=== PATIENT | male | born 1970 | race African-American/Black ===

== ENCOUNTER 2021-07-01 21:40 | Emergency (ER) | payer BC, OTHER ==
[2021-07-01 21:44] VITALS: BP 120/80; PULSE 89; TEMP 100; BMI 37.7
[2021-07-01] MEDS ORDERED: ACETAMINOPHEN 325 MG TABLET (FP) PO ONE (22:16)
== END 2021-07-01 22:38 | disposition home or self-care (01) ==
LOC: JER 21:40
DX: R50.9 Fever, unspecified (principal); Z11.52 Encounter for screening for COVID-19
CPT/HCPCS: 99283-25; C9803; U0003; U0005

== ENCOUNTER 2023-10-01 21:20 | Emergency (ER) | payer BC ==
[2023-10-01 21:25] VITALS: BMI 36.3
[2023-10-01] MEDS ORDERED: ACETAMINOPHEN INJECTION 100 ML IVPB ONE (22:22)
[2023-10-01] MEDS ORDERED: ONDANSETRON 4 MG/2 ML VIAL ONE (22:22)
[2023-10-01] MEDS: ACETAMINOPHEN 1000 MG/100 ML BAG IVPB ONE (22:47)
[2023-10-01] MEDS: SODIUM CHLORIDE 0.9% 500 ML INFUS.BAG IV ONE (22:47)
[2023-10-01] MEDS: ONDANSETRON 4 MG/2 ML VIAL IVPUSH ONE (22:48)
[2023-10-01 22:51] LABS: HEMATOCRIT 43.3 % (35.4-49); HEMOGLOBIN 15.1 GM/dL (11.7-16.9); MCHC 34.8 g/dl (32.0-35.9); MEAN PLT VOLUME 7.3 fl (7.5-11.1); PLATELET COUNT 273 10^3/uL (134-434); RBC 5.04 M/mm3 (4.00-5.60); WHITE BLOOD COUNT 9.2 K/mm3 (4.0-10.0)
[2023-10-01 22:56] LABS: INR 1.05 (0.83-1.09); PROTHROMBIN TIME (PATIENT) 12.2 SEC (9.7-13.0)
[2023-10-01 22:59] LABS: ACTIVATED PTT 30.5 SECONDS (25.2-36.5)
[2023-10-01 23:02] LABS: CHLORIDE 106 mmol/L (98-107); POTASSIUM 3.2 mmol/L (3.5-5.1); SODIUM 138 mmol/L (136-145)
[2023-10-01 23:04] LABS: CALCIUM 8.8 mg/dL (8.5-10.1)
[2023-10-01 23:05] LABS: VENOUS BASE EXCESS 3.2 mmol/L (-2-2); VENOUS O2 SATURATION 85.2 % (70-80); VENOUS PCO2 39.2 mmHg (38-52); VENOUS PH 7.458 (7.310-7.410)
[2023-10-01 23:06] LABS: ALBUMIN 3.6 g/dl (3.4-5.0); ANION GAP 3 mmol/L (4-13); BLOOD UREA NITROGEN 12.2 mg/dL (7-18); CO2 29 mmol/L (21-32); GLUCOSE,RANDOM 133 mg/dL (74-106)
[2023-10-01 23:09] LABS: CREATININE 1.5 mg/dL (0.55-1.3); SGOT/AST 22 U/L (15-37); SGPT/ALT 24 U/L (13-61); TOT PROT 6.9 g/dl (6.4-8.2)
[2023-10-01 23:11] LABS: BILIRUBIN,TOTAL 1.2 mg/dL (0.2-1)
[2023-10-01 23:12] LABS: ALK PHOS 89 U/L (45-117)
[2023-10-01] MEDS ORDERED: POTASSIUM CHLORIDE ORAL LIQUID 20 MEQ/15 ML ONE (23:29)
[2023-10-01] MEDS: POTASSIUM CHLORIDE ORAL LIQUID 20 MEQ/15 ML PO ONE (23:33)
[2023-10-01 23:43] LABS: PH,URINE >= 9.0 (5.0-8.0); URINE APPEARANCE CLEAR; URINE BILIRUBIN NEGATIVE (NEGATIVE); URINE COLOR DK YELLOW; URINE GLUCOSE (UA) NEGATIVE (NEGATIVE); URINE KETONE TRACE (NEGATIVE); URINE LEUK ESTERASE NEGATIVE (NEGATIVE); URINE NITRITE NEGATIVE (NEGATIVE); URINE PROTEIN TRACE (NEGATIVE)
[2023-10-01 23:56] LABS: LACTIC ACID 2.6 mmol/L (0.4-2.0)
[2023-10-02 01:45] LABS: LACTIC ACID 2.3 mmol/L (0.4-2.0)
[2023-10-02 01:46] VITALS: BP 97/65; PULSE 89; RESP 16
[2023-10-02 02:13] VITALS: TEMP 99.4
== END 2023-10-02 04:39 | disposition home or self-care (01) ==
LOC: JER 21:20
PROC: 3E030NZ Introduction of Analgesics, Hypnotics, Sedatives into Peripheral Vein, Open Approach (ICD-10-PCS; principal; 2023-10-01)
PROC: 3E030GC Introduction of Other Therapeutic Substance into Peripheral Vein, Open Approach (ICD-10-PCS; 2023-10-01)
DX: R50.9 Fever, unspecified (principal); R11.2 Nausea with vomiting, unspecified; M79.10 Myalgia, unspecified site; R00.0 Tachycardia, unspecified; Z20.822 Contact with and (suspected) exposure to COVID-19
CPT/HCPCS: 0241U-QW; 36415; 71045-TC-FY; 80053; 81003; 82550; 82553; 82803; 83605; 84484; 85025; 85610; 85730; 86850; 86900; 86901; 87040; 87086; 93005; 93010; 99285-25; J0131